=== PATIENT | female | born 1980 | race Caucasian/White ===

== ENCOUNTER 2019-06-29 18:15 | Emergency (ER) | payer BC, OTHER ==
--- NOTE | 2019-06-29 18:26 | PDOC ---
Rapid Medical Evaluation Medical Evaluation: I have performed a brief in-person evaluation of this patient. The patient presents with a chief complaint of: had miscarriage on 06/23; no D& C was done; bleeding stopped 06/27 but returned last night; states bleeding was very heavy; was advised by OB to come to ER for eval Pertinent physical exam findings: In NAD, pelvic deferred I have ordered the following: Labs, pelvic US The patient will proceed to the ED for further evaluation. 06/29/19 18:24
[2019-06-29 18:28] VITALS: BP 123/73; PULSE 98; TEMP 98.2; BMI 32.0
[2019-06-29 19:21] LABS: BASO % 0.2 % (0-2.0); EOS % 1.1 % (0-4.5); HEMATOCRIT 32.6 % (32.4-45.2); LYMPH % 13.5 % (8-40); MCH 31.9 pg (25.7-33.7); MCHC 33.9 g/dl (32.0-36.0); MEAN CELL VOLUME 94.4 fl (80-96); MEAN PLT VOLUME 7.1 fl (7.5-11.1); MONO % 5.5 % (3.8-10.2); NEUT % 79.7 % (42.8-82.8); PLATELET COUNT 376 K/MM3 (134-434); RBC 3.46 M/mm3 (3.60-5.2); RDW 12.6 % (11.6-15.6); WHITE BLOOD COUNT 11.6 K/mm3 (4.0-10.0)
--- NOTE | 2019-06-29 20:23 | PDOC ---
Attending Attestation - Resident Resident Name: LucioCorbin - ED Attending Attestation I have performed the following: I have examined & evaluated the patient, The case was reviewed & discussed with the resident, I agree w/resident's findings & plan - HPI HPI: 06/29/19 22:44 see resident hpi - Physicial Exam PE: 06/29/19 22:44 see resident exam - Medical Decision Making 06/29/19 22:45 39-year-old female with recent vaginal bleeding and , diagnosed with threatened and given RhoGam at another facility now with resurgence of bleeding Ultrasound performed prior to vaginal exam here showed material in the cervical canal likely in progress Patient's beta quantitative levels have mildly increased when compared to previous Results were obtained after consent obtained from patient and call made to 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
[2019-06-29 20:25] LABS: BLOOD UREA NITROGEN 13.4 mg/dL (7-18); CALCIUM 8.4 mg/dL (8.5-10.1); CREATININE 0.9 mg/dL (0.55-1.3); POTASSIUM 3.7 mmol/L (3.5-5.1)
--- NOTE | 2019-06-29 20:45 | PDOC ---
History of Present Illness - General Chief Complaint: Vaginal Bleeding Stated Complaint: BLEEDING Time Seen by Provider: 06/29/19 18:24 - History of Present Illness Initial Comments: 39F A7 LMP 05/13 presenting on the advice of [facility] for heavy vaginal bleeding. Pt had a miscarriage on 06/23/19, was seen at [facility], states she received Rhogam there, told D&C not needed. Vaginal bleeding stopped on 06/27/19 and restarted on the PM of 06/28/18. Has been on and off in flow , states she would be wear two pads and soak in an hour at the heaviest. Denies abdominal pain and cramping. Endorses mild sob and mild dizziness. Denies f/c, cp, n/v, abd pain. Denies headache, lightheadedness. 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 Allergy to Naproxen. OBGYN = Dr. Feng in [place] Past History - Past Medical History Allergies/Adverse Reactions: Allergies Allergy/AdvReac Type Severity Reaction Status Date / Time naproxen [From Naprosyn] Allergy Verified 06/29/19 18:28 COPD: No - Surgical History Abdominal Surgery: (D AND C) - Psycho Social/Smoking Cessation Hx Smoking History: Never smoked Hx Alcohol Use: No Drug/Substance Use Hx: No Review of Systems - Review of Systems Comments:: CONSTITUTIONAL: Denies F / C HEENT: Endorses some dizziness early today. Denies headache, lightheadedness, RESP: Denies SOB, cough CARD: Denies chest pain, palpitations GI: Denies N / V / D, abdominal pain/cramping, inability to tolerate PO : Denies dysuria, frequency SKIN: Denies rashes NEURO: Denies numbness, tingling, weakness MSK: Denies back pain *Physical Exam - Vital Signs Last Vital Signs Temp Pulse Resp BP Pulse Ox 98.2 F 98 H 16 123/73 100 06/29/19 18:24 06/29/19 18:24 06/29/19 18:24 06/29/19 18:24 06/29/19 18:24 - Physical Exam GEN: Well appearing, NAD, comfortable. AAOx3. HEENT: NC/AT, EOMI, PERRLA. No facial asymmetry. Moist mucous membranes. Normal voice. Supple neck w/ FROM. CV: S1/S2, RRR, no m/r/g LUNG: CTAB, no wheezes, crackles, rales, rhonchi. GI: +TTP suprapubically otherwise soft, nondistended, +BS, no guarding, no rebound. : Exam chaperoned by DEL Broderick. There is blood on the genitalia on inspection; no atrophy noted. Speculum exam limited; there was large amount of blood in the vault occluding view; there was a clot in vault which was removed with removal of speculum. EXTREMITIES:No LE edema. No obvious deformities of all extremities. SKIN: Warm, dry, no rashes appreciated. PSYCH: Normal mood and affect. NEURO: Moving all extremities well. ED Treatment Course - LABORATORY CBC & Chemistry Diagram: 06/29/19 18:58 06/29/19 18:58 - ADDITIONAL ORDERS Additional order review: Laboratory Results 06/29/19 06/29/19 18:58 18:58 Sodium 138 Potassium 3.7 Chloride 106 Carbon Dioxide 27 Anion Gap 5 L BUN 13.4 Creatinine 0.9 Est GFR (CKD-EPI)AfAm 92.05 Est GFR (CKD-EPI)NonAf 79.42 Random Glucose 84 Calcium 8.4 L Beta HCG, Quant 57442.4 Blood Type A NEGATIVE Antibody Screen Positive 06/29/19 18:58 RBC 3.46 L MCV 94.4 MCHC 33.9 RDW 12.6 MPV 7.1 L Neutrophils % 79.7 Lymphocytes % 13.5 Monocytes % 5.5 Eosinophils % 1.1 Basophils % 0.2 Medical Decision Making - Medical Decision Making 06/29/19 20:44 39F A7 LMP 05/13 presenting for vaginal bleeding since last PM; miscarriage on 06/23/19 (seen at [facility], rcvd rhogam). TTP suprapubically. RME labs and TVUS 06/29/19 21:[address] [facility] regarding hC06/23/19 approx. 15:00 hCG [id number] TVUS IMPRESSION: A nonviable embryonic pole is seen within the cervical canal as noted above. 06/29/19 22:19 d/w pt regarding if she wants to have [facility] here eval her or if she would prefer to be dc'd and f/u with her [facility]ICE [facility]; pt became distressed and states she would rather have our [facility] eval bc she was DC'd w/ f/u at [facility] and now is dealing with this. - [facility] c/s 06/29/19 23:36 d/w Dr. Mcdonald - no indication for emergent D&C as pt VS stable and H/H stable ; recommends outpatient [facility] follow up in the AM for discussion of medical management vs elective D&C. d/w patient on d/w Dr. Mcdonald; told her that she can either follow up at [facility] tomorrow or follow up with her own [facility] tomorrow in the AM. She prefers to seeing her own [facility]PRENT[facility]. Will DC home w/ close [facility] f/u and strict return precautions. Discharge - Discharge Information Problems reviewed: Yes Clinical Impression/Diagnosis: Incomplete miscarriage Condition: Stable Disposition: HOME - Admission No - Follow up/Referral Referrals: ON STAFF,NOT [Non Staff, Medical] - - Patient Discharge Instructions Patient Printed Discharge Instructions: DI for Miscarriage Additional Instructions: FOLLOW UP WITH YOUR [facility]PRENTICE [facility] ON 06/30/2018 TO DISCUSS FURTHER MANAGEMENT OF YOUR CONDITION. A REPORT OF YOUR ULTRASOUND WAS PROVIDED TO YOU. YOUR LEVEL (HCG = 69919; 06/29/18) RETURN TO THE NEAREST EMERGENCY DEPARTMENT IF YOU EXPERIENCE: - SEVERE PAIN - HEAVY VAGINAL BLEEDING (SOAKING 1 PAD AN HOUR FOR 2 STRAIGHT HOURS) - CHEST PAIN, SHORTNESS OF BREATH - FEVERS - ANYTHING THAT CONCERNS YOU - Post Discharge Activity Work/Back to School Note: Back to Work
== END 2019-06-29 23:54 | disposition home or self-care (01) ==
LOC: SUPCPDRO 18:15 → JER 18:15
DX: O03.1 Delayed or excessive hemorrhage following incomplete spontaneous abortion (principal)
CPT/HCPCS: 36415; 76830-TC; 80048; 84702; 85025; 86850; 86870; 86900; 86901; 86902; 99283-25